=== PATIENT | male | born 1950 | race Caucasian/White ===

== ENCOUNTER → 2018-12-19 | Outpatient (CLI) | payer MEDICARE ==
--- NOTE | 2018-12-19 10:34 | Diagnostic Imaging Report ---
PROCEDURE: CT urinary tract, rule out kidney stone. TECHNIQUE: Multiple contiguous axial images were obtained through the abdomen and pelvis without the use of intravenous contrast. INDICATION: Abdominal pain and gross hematuria. FINDINGS: Unenhanced images of the liver indicate probable diffuse steatosis. There is no biliary ductal dilatation or gallbladder abnormality identified. No pancreatic, adrenal gland or splenic abnormality is seen. There is mild bilateral hydronephrosis with significant dilatation of both renal collecting systems. There is moderate bilateral hydroureter with ureteric tortuosity noted. There is no evidence of calculus along the course of the urinary tract. The appendix has a normal appearance. There is mild aortoiliac atherosclerotic calcification. No pathologic adenopathy is identified in the abdomen or pelvis and there is no evidence of free fluid. There is calcification bilaterally within the vas deferens. There are numerous diverticula along the colon without evidence of colonic inflammation. There is mild irregularity of the bladder wall which may be due to early trabeculation. There is herniation of fat into the right inguinal canal. No acute osseous abnormality is identified. There is mild lumbar spondylosis. IMPRESSION: Dilatation of the urinary tracts bilaterally which may be related to previous obstruction or bladder outlet pathology. There does appear to be mild trabeculation of the urinary bladder as well. There is no evidence for urinary tract calculus or other acute abnormality in the abdomen or pelvis. Dictated by: Dictated on workstation # [id number]
== END ==
LOC: RAD 09:01
PROVIDERS: ATTEND Urology
DX: N28.89 Other specified disorders of kidney and ureter (principal); R31.0 Gross hematuria; R10.9 Unspecified abdominal pain
CPT/HCPCS: 74176

== ENCOUNTER → 2019-01-23 | Outpatient (CLI) | payer MEDICARE ==
--- NOTE | 2019-01-23 14:37 | Diagnostic Imaging Report ---
PROCEDURE: US Renal Bilateral. TECHNIQUE: Multiple real-time grayscale images were obtained over the kidneys in various projections bilaterally. INDICATION: Bilateral hydronephrosis noted on prior CT. FINDINGS: Right kidney measures 11.6 x 6.5 x 6.8 cm and left kidney measures 8.8 x 4.9 x 4.5 cm. Cortical thickness and echogenicity is normal. There appears to be very mild hydronephrosis bilaterally. No calculi are seen. Bladder again demonstrates some thickening and questionable trabeculation. The ureteral jets were not visualized at this time. IMPRESSION: Mild bilateral hydronephrosis. Dictated by: Dictated on workstation # [id number]
== END ==
LOC: RAD 10:34
PROVIDERS: ATTEND Urology
DX: N13.30 Unspecified hydronephrosis (principal); N40.0 Benign prostatic hyperplasia without lower urinary tract symptoms
CPT/HCPCS: 76770